=== PATIENT | male | born 1955 | race Caucasian/White ===

== ENCOUNTER 2017-07-22 07:44 | Emergency (ER) | payer OTHER ==
[~2017-07-22] VITALS: Ht 180.3 cm; Wt 81.5 kg
[~2017-07-22 07:44] MED LIST: VALA500
[2017-07-22 07:46] VITALS: BP 135/77; PULSE 78; RESP 18; TEMP 97.8; O2SAT 99
--- NOTE | 2017-07-22 08:10 | PD ---
HPI Chief Complaint: Abnormal Results Time Seen by Provider: 07:58 Travel History International Travel<30 days: No Contact w/Intl Traveler<30days: No Traveled to known affect area: No History of Present Illness HPI 61-year-old male requesting IV fluid. Patient states that he was seen by personal physician 2 days ago and was diagnosed with flu and dehydration. Patient was given 4 back so IV fluid the first day and one bag of fluid yesterday. Patient was advised to continue to have IV hydration with IV fluids for 3 more days. Patient states that the outpatient IV clinic is closed on The weekend patient was advised to go to ED for IV fluid. Patient denies any headache. Patient denies any chest pain or shortness of breath. Patient denies abdominal pain. Patient states that he had nausea vomiting diarrhea 2 days ago but that much better now. Patient is on Tamiflu daily. Patient has history of HIV positive and on HIV medication and valacyclovir. Patient states that he had fever 2 days ago but not since then. PFSH Past Medical History Hx Anticoagulant Therapy: No Cardiovascular Problems: No Chemotherapy: No Cerebrovascular Accident: No Diabetes: No Hepatitis: Yes (HIV ) Medical other: Yes (HIV ) Respiratory: Yes (HIV +) Influenza Vaccination: No Past Surgical History Surgical History: No Previous Surgery Social History Alcohol Use: Yes (nilsa ) Tobacco Use: No Substance Use: No Allergies-Medications (Allergen,Severity, Reaction): Coded Allergies: No Known Allergies (Verified Allergy, Mild, 07/22/17) Reported Meds & Prescriptions Reported Meds & Active Scripts Active Reported Valtrex (Valacyclovir HCl) 500 Mg Tab Review of Systems General / Constitutional: No: Fever Eyes: No: Visual changes HENT: No: Headaches Cardiovascular: No: Chest Pain or Discomfort Respiratory: No: Shortness of Breath Gastrointestinal: No: Abdominal Pain Genitourinary: No: Dysuria Musculoskeletal: No: Pain Skin: No Rash Neurologic: No: Weakness Psychiatric: No: Depression Endocrine: No: Polydipsia Hematologic/Lymphatic: No: Easy Bruising Physical Exam Narrative GENERAL: Well-nourished, well-developed patient. SKIN: Focused skin assessment warm/dry. HEAD: Normocephalic. EYES: No scleral icterus. No injection or drainage. NECK: Supple, trachea midline. No JVD or lymphadenopathy. CARDIOVASCULAR: Regular rate and rhythm without murmurs, gallops, or rubs. RESPIRATORY: Breath sounds equal bilaterally. No accessory muscle use. GASTROINTESTINAL: Abdomen soft, non-tender, nondistended. MUSCULOSKELETAL: No cyanosis, or edema. BACK: Nontender without obvious deformity. No CVA tenderness. Neurologic exam normal. Data Data Last Documented VS Vital Signs Date Time Temp Pulse Resp B/P (MAP) Pulse Ox O2 Delivery O2 Flow Rate FiO2 07/22/17 07:58 16 98 Room Air 07/22/17 07:46 97.8 78 135/77 (96) Orders Orders Basic Metabolic Panel (Bmp) (07/22/17 08:03) Sodium Chlor 0.9% 1000 Ml Inj (Ns 1000 M (07/22/17 08:15) Labs Laboratory Tests Test 07/22/17 08:09 Blood Urea Nitrogen 19 MG/DL Creatinine 1.57 MG/DL Random Glucose 116 MG/DL Calcium Level 8.2 MG/DL Sodium Level 138 MEQ/L Potassium Level 3.8 MEQ/L Chloride Level 105 MEQ/L Carbon Dioxide Level 26.6 MEQ/L Anion Gap 6 MEQ/L Estimat Glomerular Filtration Rate 45 ML/MIN MDM Medical Decision Making Medical Screen Exam Complete: Yes Emergency Medical Condition: Yes Interpretation(s) 9:06 AM. BUN 19. Creatinine 1.57. GFR 45. Differential Diagnosis Differential diagnosis including dehydration, electrolyte imbalance, flu Narrative Course 61-year-old male with influenza and dehydration. Patient was sent to the ED for IV fluid hydration. Normal saline solution 1 L IV bolus. Diagnosis Primary Impression: Viral syndrome Additional Impression: Chronic kidney disease (CKD) stage G3a/A1, moderately decreased glomerular filtration rate (GFR) between 45-59 mL/min/1.73 square meter and albuminuria creatinine ratio less than 30 mg/g Patient Instructions: General Instructions Additional Instructions: Encourage by mouth fluid. Follow-up with personal physician. Return if persistent problem or worse. Med/Other Pt SpecificInfo: No Change to Meds Disposition: 01 DISCHARGE HOME Condition: Stable Josh Hurtado MD Jul 22, 2017 08:10
[2017-07-22] MEDS ORDERED: SODIUM CHLOR 0.9% 1000 ML INJ 1,000 ML IV ONE (08:15)
[2017-07-22 08:48] LABS: BICARBONATE 26.6 MEQ/L (21.0-32.0); POTASSIUM 3.8 MEQ/L (3.5-5.1)
== END 2017-07-22 10:02 | disposition home or self-care (01) ==
LOC: NEPE 07:44
DX: B34.9 Viral infection, unspecified (principal); E86.0 Dehydration; B20 Human immunodeficiency virus [HIV] disease
CPT/HCPCS: 80048; 99284; J7030